=== PATIENT | female | born 1965 | race Caucasian/White ===

== ENCOUNTER 2017-05-15 19:29 | Emergency (ER) | payer MEDICAID ==
[2017-05-15 19:46] VITALS: O2SAT 100
[2017-05-15] MEDS ORDERED: TYLENOL 325 MG PO STA (20:13)
[2017-05-15] MEDS ORDERED: TYLENOL 325 MG ONE (20:17)
--- NOTE | 2017-05-15 21:22 | ERPHSYRPT ---
- History of Present Illness Time Seen by Provider: 05/15/17 20:00 Source: patient Exam Limitations: clinical condition Patient Subjective Stated Complaint: Right Thumb pain Triage Nursing Assessment: Pt presents to the ED with complaints of right thumb pain. Pt states she may have injured her thumb approximately 1 week ago but denies exact incident. Pt states pain is worse with movement. Pt denies taking anything for pain. No deformity noted. Mild swelling noted, no redness noted. Skin pwd, no distress noted. Physician History: PATIENT HAS RIGHT THUMB PAIN X 1 WEEK, DENIES HISTORY OF TRAUMA OR INJURY. HAS PERSISTENT PAIN. DENIES DEFORMITY OR BRUISING. Occurred: last week Method of Injury: unknown Quality: constant Severity of Pain-Max: moderate Severity of Pain-Current: mild Extremities Pain Location: thumb: right Modifying Factors: Improves With: movement Associated Symptoms: none Allergies/Adverse Reactions: No Known Drug Allergies Allergy (Unverified 05/15/17 19:47) Hx Tetanus, Diphtheria Vaccination/Date Given: No Hx Influenza Vaccination/Date Given: No Hx Pneumococcal Vaccination/Date Given: No Immunizations Up to Date: No - Review of Systems Constitutional: No Fever, No Chills Musculoskeletal: Joint Pain Neurological: No Dizziness, No Focal Weakness, No Sensory Changes Psychological: No Symptoms - Past Medical History Pertinent Past Medical History: Yes Neurological History: No Pertinent History ENT History: No Pertinent History Cardiac History: No Pertinent History Respiratory History: No Pertinent History Endocrine Medical History: No Pertinent History Musculoskeletal History: No Pertinent History GI Medical History: No Pertinent History History: No Pertinent History Psycho-Social History: No Pertinent History Female Reproductive Disorders: No Pertinent History - Past Surgical History Past Surgical History: Yes Neuro Surgical History: No Pertinent History Cardiac: No Pertinent History Respiratory: No Pertinent History Gastrointestinal: No Pertinent History Genitourinary: No Pertinent History Musculoskeletal: Orthopedic Surgery Female Surgical History: No Pertinent History - Social History Smoking Status: Current every day smoker How long have you smoked: 30 years Exposure to second hand smoke: Yes Drug Use: none Patient Lives Alone: No - Female History Hx Now: No - Nursing Vital Signs Nursing Vital Signs: Initial Vital Signs Temperature 98.1 F 05/15/17 19:42 Pulse Rate 78 05/15/17 19:42 Respiratory Rate 16 05/15/17 19:42 Blood Pressure 137/73 05/15/17 19:42 O2 Sat by Pulse Oximetry 100 05/15/17 19:42 Pain Scale Pain Intensity 7 - Physical Exam Hand Exam: normal inspection, limited ROM, soft tissue tenderness (OVER MCP RIGHT THUMB NO ECCHYMOSIS OR DEFORMITY) SpO2: 100 Oxygen Delivery: Room Air - Radiology Exams Right Hand X-ray Interpretation: Interpreted by me, Negative, No Fracture Ordered Tests: Active Orders 24 hr Category Date Time Status HAND (MINIMUM 3 VIEWS) Stat Exams 05/15/17 20:46 Taken Medication Summary Discontinued Medications Generic Name Dose Route Start Last Admin Trade Name Brandan PRN Reason Stop Dose Admin Acetaminophen 650 mg 05/15/17 20:13 05/15/17 20:18 Tylenol 325 Mg PO 05/15/17 20:14 650 mg STAT STA Administration Acetaminophen Confirm 05/15/17 20:17 Tylenol 325 Mg Administered 05/15/17 20:18 Dose 650 mg .ROUTE .STK-MED ONE - Progress Progress: unchanged Progress Note: 05/15/17 21:20 ALUMINUM SPLINT APPLIED TO RIGHT THUMB Counseled pt/family regarding: diagnosis, need for follow-up, rad results - Departure Time of Disposition: 21:22 Departure Disposition: Home Clinical Impression: RIGHT THUMB STRAIN Condition: Stable Critical Care Time: No Referrals: ABISAI ARCEO MD [Primary Care Provider] - Additional Instructions: MAINTAIN ALUMINUM SPLINT BELOW RIGHT THUMB, AND REMOVE AFTER 5 DAYS. TORADOL 10MG EVERY 6 HOURS NEEDED FOR PAIN. CONSULT YOUR PRIMARY CARE PROVIDER FOR FOLLOWUP. Prescriptions: Ketorolac Tromethamine [Toradol] 10 mg PO Q6H PRN PRN #20 tablet PRN Reason: Pain
[2017-05-15 21:24] VITALS: BP 109/60; PULSE 61
--- NOTE | 2017-05-16 08:53 | XRAY ---
Indication: Thumb pain. No known injury. Comparison: None 3 views of the right hand obtained. No bony, articular, or soft tissue abnormalities.
== END 2017-05-15 21:30 | disposition home or self-care (01) ==
LOC: ED 19:29
DX: S66.011A Strain of long flexor muscle, fascia and tendon of right thumb at wrist and hand level, initial encounter (principal); M79.644 Pain in right finger(s)
CPT/HCPCS: 73130; 99282; A9270-GY